=== PATIENT | male | born 1980 | race Caucasian/White ===

== ENCOUNTER 2016-12-29 06:45 | Emergency (ER) | payer OTHER ==
[~2016-12-29] VITALS: Ht 172.7 cm; Wt 83.9 kg
[~2016-12-29 06:45] MED LIST: FLEXERIL10 MG PO
[2016-12-29 07:09] VITALS: BP 130/88
--- NOTE | 2016-12-29 07:57 | ED GI/GU/ABDOMINAL COMPLAINT ---
History of Present Illness General Chief Complaint: General Adult Stated Complaint: CONSTIPATION, DIFFICULT URINATING Source: patient, old records Exam Limitations: no limitations Vital Signs & Intake/Output Vital Signs & Intake/Output Vital Signs Date Time Temp Pulse Resp B/P B/P Pulse O2 O2 Flow FiO2 Mean Ox Delivery Rate 12/29 0709 98.1 84 18 130/88 100 Room Air Allergies Coded Allergies: NO KNOWN ALLERGIES (05/18/12) Reconcile Medications CYCLOBENZAPRINE HCL (Flexeril) 10 MG TAB 1 TAB PO TID PRN PAIN Magnesium Citrate (Citrate Of Magnesia) 300 ML SOLUTION 296 ML PO ONCE constipation Triage Note: 36 Y/O MALE C/O "PROBLEMS WITH ERECTILE DYSFUNCTION" AND CONSTIPATION X 2 DAYS. STATES HE WAS FINALLY ABLE TO HAVE A BM IN WAITING ROOM, "I HAD TO PUSH SO HARD I SAW SPOTS". PT CONCERNED DUE TO FAMILY HISTORY OF PROSTATE PROBLEMS/CANCER. URINE SAMPLE SENT BY JANET ESPARZA. Triage Nurses Notes Reviewed? yes Onset: Abrupt Duration: day(s): (2), constant Timing: recent history Quality/Severity: aching Severity Numbers: 3 Location: generalized abdomen Radiation: no radiation Activities at Onset: none Prior Abdominal Problems: none No Modifying Factors: none Associated Symptoms: denies HPI: 36-year-old male presents to ER for evaluation with no medical history presents to the ER for evaluation with multiple complaints. He is first complaining of constipation for the past 2 days however he states he was able to have a small bowel movement in the waiting room and is feeling improved. He denies any abdominal pain nausea vomiting. He denies any black or bloody stools no recent diarrhea prior to the episodes beginning no recent change in his appetite. He is also complaining of difficulty obtaining an erection for the past 3 days. He states that he has been under stress and not sleeping due to his work schedule. He states the constipation came on after he developed the other problem. He denies any urinary complaints urgency frequency dysuria hematuria. The patient was seen by Dr. Espinoza roughly 6 months ago for a vasectomy however denies issues with erectile dysfunction in the past he denies any blood in his semen that he is noticed. Past History Travel History Traveled to [place] past 21 day No Medical History Any Pertinent Medical History? 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 No Review of Systems Review of Systems Constitutional: Reports: see HPI. All Other Systems: Reviewed and Negative Comments Review of systems: See HPI, All other systems negative. Constitutional, no chills no fever, no malaise HEENT: No visual changes no sore throat no congestion Cardiovascular: No chest pain , no palpitation Skin: no rashes, no change in skin Respiratory: No dyspnea no cough no sputum GI: No nausea no vomiting, no diarrhea, constipation : No dysuria No hematuria, no frequency, no discharge Muscle skeletal: No joint pain, no joint swelling, no back pain, no neck pain, Neurologic: No numbness no headache Psych: No stress Heme/endocrine: No bruising Immunology: No lymphadenopathy Physical Exam Physical Exam General Appearance: well developed/nourished, alert, awake Gastrointestinal: normal bowel sounds, soft, non-tender Comments: Well-developed well-nourished patient in no apparent distress. HEENT: Atraumatic, extraocular motion intact Neck: Supple, FROM Back: FROM Cardiovascular: Regular rate and rhythms no murmurs rubs or gallops, Respiratory: No respiratory distress. Patient speaking in full complete sentences. Breath sounds clear to auscultation bilaterally: NO W/R/R abdomen: Soft nontender no rebound or guarding Extremities: full range of motion Neuro: awake, alert, and oriented to person, place and time. There were no obvious focal neurologic abnormalities. Skin: Warm & dry;No appreciable rash on exposed skin Psych: Mood affect normal, normal memory normal judgment. Core Measures ACS in differential dx? No Severe Sepsis Present: No Septic Shock Present: No Progress Differential Diagnosis: malignancy, uti, pyelo, constipation, sbo, perforation, prostatitis Plan of Care: Orders Procedure Date/time Status URINALYSIS 12/29 07 Complete Laboratory Tests 12/29/16 0705: Urine Color YEL, Urine Clarity CLEAR, Urine pH 6.0, Ur Specific [place] 1.020, Urine Protein NEG, Urine Ketones NEG, Urine Nitrite NEG, Urine Bilirubin NEG, Urine Urobilinogen 0.2, Ur Leukocyte Esterase NEG, Ur Microscopic EXAM NOT REQUIRED, Urine Hemoglobin NEG, Urine Glucose NEG Patient clinically appears well he was able to have a bowel movement here feeling improved I discussed with him his results need for close follow-up with his primary care physician as well as neurologist Dr. Espinoza if symptoms persist he denies any difficulty with urination no hematuria patient clinically appears well prescription for magnesium citrate was provided answered all his questions he feels comfortable PLAN cleared for discharge (KAYKAY VANG,[place]) Initial ED EKG: none Departure Departure Time of Disposition: 807 Disposition: HOME OR SELF CARE Condition: Stable Clinical Impression Primary Impression: Constipation Referrals: JOSE CHAN,Sheri QUINTERO (PCP/Family) CHAR ESPINOZA MD Additional Instructions: follow up with dr espinoza urologist this week if your symptoms persist. magnesium citrate for constipation, increase your fiber intake, drink plenty of fluids. return with any concerns Departure Forms: Customer Survey General Discharge Information Prescriptions: Current Visit Scripts Magnesium Citrate (Citrate Of Magnesia) 296 ML PO ONCE #296 ML
[2016-12-29] MEDS ORDERED: CITRATE OF MAG300 ML PO (08:09)
== END 2016-12-29 08:20 ==
LOC: ERH 06:45
DX: K59.00 Constipation, unspecified (principal)
CPT/HCPCS: 81003